=== PATIENT | male | born 1985 | race Caucasian/White ===

== ENCOUNTER → 2016-09-18 | Outpatient (CLI) | payer OTHER, BC ==
[~2016-09-18] MED LIST: NONE PER PT
== END | disposition home or self-care (01) ==
LOC: CARD 10:34
PROVIDERS: ATTEND Family Medicine
DX: I25.10 Atherosclerotic heart disease of native coronary artery without angina pectoris (principal)
CPT/HCPCS: 93017

== ENCOUNTER 2016-12-23 00:01 | Emergency (ER) | payer OTHER, BC | END 2016-12-23 07:10 | LOC: ED 03:55 | DX: L02.415 Cutaneous abscess of right lower limb (principal); M79.604 Pain in right leg; Z87.891 Personal history of nicotine dependence | CPT/HCPCS: 10060 ==

== ENCOUNTER 2016-12-27 09:26 | Emergency (ER) | payer OTHER, BC ==
[~2016-12-27] VITALS: Ht 182.9 cm; Wt 100.6 kg
[2016-12-27 09:31] VITALS: BP 116/71
== END 2016-12-27 11:21 | disposition home or self-care (01) ==
LOC: ED 11:14
DX: L02.415 Cutaneous abscess of right lower limb (principal); Z90.49 Acquired absence of other specified parts of digestive tract; F17.200 Nicotine dependence, unspecified, uncomplicated

== ENCOUNTER 2018-09-02 11:01 | Emergency (ER) | payer OTHER, BC ==
[~2018-09-02] VITALS: Ht 182.9 cm; Wt 102.0 kg
[2018-09-02 11:11] VITALS: BP 127/67
[2018-09-02 11:55] LABS: BASOPHILS # (AUTO) 0.04 x10^3/uL (0-0.1); BASOPHILS % (AUTO) 1 % (0-1); EOSINOPHILS # (AUTO) 0.11 x10^3/uL (0-0.4); EOSINOPHILS % (AUTO) 2 % (1-7); LYMPHOCYTES # (AUTO) 1.34 x10^3/uL (1-3.4); LYMPHOCYTES % (AUTO) 20 % (22-44); MD NO; MEAN CORPUSCULAR HEMOGLOBIN 30.2 pg (27.5-34.5); MEAN CORPUSCULAR HGB CONC 35.2 g/dL (33.2-36.2); MEAN CORPUSCULAR VOLUME 85.7 fL (81-97); MEAN PLATELET VOLUME 8.5 fL (7.4-10.4); MONOCYTES % (AUTO) 6 % (2-9); NEUTROPHILS # (AUTO) 4.75 x10^3/uL (1.8-6.8); NEUTROPHILS % (AUTO) 72 % (42-75); PLATELET COUNT 279 x10^3/uL (130-400); RED BLOOD COUNT 5.25 x10^6/uL (4.38-5.82); RED CELL DISTRIBUTION WIDTH 13.4 % (9.4-14.8)
--- NOTE | 2018-09-02 12:02 | NUR ---
TO ROOM 24
[2018-09-02 12:04] LABS: ALBUMIN 4.2 g/dL (3.4-5.0); ANION GAP 5 mmol/L (5-15); CALCIUM 9.1 mg/dL (8.5-10.1); CHLORIDE 108 mmol/L (98-107)
[2018-09-02 12:10] LABS: CREATININE 1.11 mg/dL (0.7-1.3); TROPONIN I < 0.015 ng/mL (0.000-0.045)
== END 2018-09-02 12:56 | disposition home or self-care (01) ==
LOC: ED 12:51
DX: R07.89 Other chest pain (principal); F41.1 Generalized anxiety disorder; Z87.891 Personal history of nicotine dependence; Z90.49 Acquired absence of other specified parts of digestive tract
CPT/HCPCS: 36415; 71045; 80048; 82040; 84484; 85025; 93005; 99284

== ENCOUNTER 2018-10-20 15:47 | Emergency (ER) | payer OTHER, BC ==
[~2018-10-20] VITALS: Ht 182.9 cm; Wt 102.6 kg
[2018-10-20 15:51] VITALS: BP 117/69
[2018-10-20] MEDS ORDERED: OMNIPAQUE 350 MG/ML, 150 ML BOTTLE ONE (16:51)
--- NOTE | 2018-10-20 17:31 | NUR ---
FROM LOBBY TO ROOM AT THIS TIME
--- NOTE | 2018-10-20 17:37 | NUR ---
Assumed care of patient. C/O throat discomfort and a feeling "as if there's phlegm stuck in there". Placed on NIBP and pulse ox. Will continue to monitor.
--- NOTE | 2018-10-20 19:09 | NUR ---
Patient/Caregiver given discharge instructions and they have confirmed that they understand the instructions. Patient ambulatory with steady gait.
== END 2018-10-20 19:10 | disposition home or self-care (01) ==
LOC: ED 19:04
DX: K21.0 Gastro-esophageal reflux disease with esophagitis (principal); F41.1 Generalized anxiety disorder
CPT/HCPCS: 70360; 74220; 99283; Q9967

== ENCOUNTER 2018-11-30 09:53 | Emergency (ER) | payer OTHER, BC ==
[~2018-11-30] VITALS: Ht 182.9 cm; Wt 100.0 kg
[2018-11-30 10:02] VITALS: BP 121/70
[2018-11-30] MEDS ORDERED: LIDOCAINE-MPF 1%, 5ML ONE (10:33)
[2018-11-30] MEDS ORDERED: LIDOCAINE 1%-EPI 1:100K, 20ML SQ ONE (11:00)
== END 2018-11-30 11:45 | disposition home or self-care (01) ==
LOC: ED 11:30
DX: L02.31 Cutaneous abscess of buttock (principal); Z90.49 Acquired absence of other specified parts of digestive tract; F41.1 Generalized anxiety disorder; K21.9 Gastro-esophageal reflux disease without esophagitis
CPT/HCPCS: 10060; 99283; J3490

== ENCOUNTER 2018-12-02 09:47 | Emergency (ER) | payer OTHER, BC ==
[~2018-12-02] VITALS: Ht 182.9 cm; Wt 104.5 kg
[2018-12-02 09:49] VITALS: BP 111/71
[2018-12-02] MEDS ORDERED: UNKNOWN ANTIBIOTIC (10:33)
--- NOTE | 2018-12-02 11:28 | NUR ---
Patient/Caregiver given discharge instructions and they have confirmed that they understand the instructions. Patient ambulatory with steady gait.
== END 2018-12-02 11:29 | disposition home or self-care (01) ==
LOC: ED 11:09
DX: Z48.01 Encounter for change or removal of surgical wound dressing (principal); K21.9 Gastro-esophageal reflux disease without esophagitis
CPT/HCPCS: 99283

== ENCOUNTER 2019-05-08 09:37 | Emergency (ER) | payer OTHER, BC ==
[~2019-05-08] VITALS: Ht 182.9 cm; Wt 105.0 kg
[~2019-05-08 09:37] MED LIST changes: +UNKNOWN ANTIBIOTIC
[2019-05-08 09:53] VITALS: BP 113/67
[2019-05-08] MEDS ORDERED: LIDOCAINE-MPF 1%, 5ML ONE (10:20)
[2019-05-08] MEDS ORDERED: LIDOCAINE-MPF 1%, 5ML INFIL ONE (10:30)
== END 2019-05-08 11:08 | disposition home or self-care (01) ==
LOC: ED 10:15
DX: L02.411 Cutaneous abscess of right axilla (principal)
CPT/HCPCS: 10060; 99283

== ENCOUNTER 2019-11-04 10:40 | Emergency (ER) | payer OTHER, BC ==
[~2019-11-04] VITALS: Ht 182.9 cm; Wt 95.0 kg
[2019-11-04] MEDS ORDERED: LIDOCAINE-MPF 1%, 5ML ONE (11:16)
--- NOTE | 2019-11-04 11:17 | NUR ---
PATIENT ARRIVES WITH TWO ABCESSES ONE AXILLARY AND ONE LEFT BUTTOCKS - THAT BEGAN A WEEK AGO.
[2019-11-04] MEDS ORDERED: LIDOCAINE-MPF 1%, 5ML INFIL ONE (11:30)
--- NOTE | 2019-11-04 11:46 | NUR ---
md at bedside and lysing abcess. got him set up and lidocaine that he administered.
[2019-11-04 12:04] VITALS: BP 122/78
--- NOTE | 2019-11-04 12:05 | NUR ---
patient wounds dressed bulky dressing and discharge reviewed, shows understanding
== END 2019-11-04 12:07 | disposition home or self-care (01) ==
LOC: ED 11:52
DX: L02.31 Cutaneous abscess of buttock (principal); L73.9 Follicular disorder, unspecified; K21.9 Gastro-esophageal reflux disease without esophagitis; F17.210 Nicotine dependence, cigarettes, uncomplicated
CPT/HCPCS: 10060; 99406

== ENCOUNTER 2020-03-13 11:16 | Emergency (ER) | payer OTHER, BC ==
[~2020-03-13] VITALS: Ht 182.9 cm; Wt 93.7 kg
[2020-03-13 11:26] VITALS: BP 116/66
[2020-03-13] MEDS ORDERED: LIDOCAINE 1%-EPI 1:100K, 20ML ONE (11:57)
[2020-03-13] MEDS ORDERED: LIDOCAINE-MPF 1%, 5ML INFIL ONE (12:00)
--- NOTE | 2020-03-13 12:09 | NUR ---
break RN: assumed care of pt on behalf of primary RN for lunch break only. Dahiana LITTLEJOHN at bedside for I&D
--- NOTE | 2020-03-13 12:30 | NUR ---
TASK RN: Patient/Caregiver given discharge instructions and they have confirmed that they understand the instructions. Patient ambulatory with steady gait.
== END 2020-03-13 12:42 | disposition home or self-care (01) ==
LOC: ED 12:25
DX: L02.31 Cutaneous abscess of buttock (principal)
CPT/HCPCS: 10060; 99283